=== PATIENT | female | born 1980 | race Caucasian/White ===

== ENCOUNTER 2019-03-27 02:38 | Emergency (ER) | payer BC, OTHER ==
--- NOTE | 2019-03-27 03:22 | RADIOLOGY REPORT (SQ) ---
EXAM DESCRIPTION: XR HAND 3 OR MORE VIEWS COMPLETED DATE/TME: 03/27/2019 02:55 CLINICAL HISTORY: 38 years Female, DOG BITE COMPARISON: None. Findings: Known soft tissue injury; no radioopaque foreign body. Bones, joints, and soft tissues of the LEFT XR HAND 3 OR MORE VIEWS appear otherwise intact. IMPRESSION: Soft tissue injury; else, no acute findings.
--- NOTE | 2019-03-27 07:04 | ER Document Report ---
ED Animal Bite - General Chief Complaint: Dog Bite Stated Complaint: LEFT HAND INJURY/DOG BITE Time Seen by Provider: 03/27/19 06:38 Primary Care Provider: TOMAS WINTER [NO LOCAL MD] - Follow up in 1 week Notes: Patient is a 38-year-old female who presents emergency department with a chief complaint of a dog bite to her left hand. This happened around midnight last night. She states that the dog that bit her was a neighbor dog and the neighbors say they are up-to-date on the rabies immunization, but cannot find the paper, as it was midnight. The patient is up-to-date on her tetanus vaccine. There is a small puncture wound in the webspace between digits 4 and 5 of her right hand. TRAVEL OUTSIDE OF THE [place] IN LAST 30 DAYS: No - Related Data Allergies/Adverse Reactions: ceftriaxone sodium [From Rocephin] Allergy (Severe, Verified 03/27/19 06:27) Penicillins Allergy (Severe, Verified 03/27/19 06:27) erythromycin base [Erythromycin Base] Allergy (Intermediate, Verified 03/27/19 06:27) ibuprofen [Ibuprofen] Allergy (Intermediate, Verified 03/27/19 06:27) Past Medical History - Social History Smoking Status: Unknown if Ever Smoked Family History: Reviewed & Not Pertinent Patient has suicidal ideation: No Patient has homicidal ideation: No Renal/ Medical History: Denies: Hx Peritoneal Dialysis - Immunizations Hx Diphtheria, Pertussis, Tetanus Vaccination: Yes Review of Systems - Review of Systems Notes: REVIEW OF SYSTEMS: CONSTITUTIONAL : Denies recent illness. Denies recent unintentional weight loss. Denies fever, chills, or sweats. EENT: Denies eye, ear, throat, or mouth pain, discharge, or symptoms. Denies nasal or sinus congestion. CARDIOVASCULAR: Denies chest pain. RESPIRATORY: Denies shortness of breath, cough, congestion, difficulty breathing, or wheezing. GASTROINTESTINAL: Denies nausea, vomiting, and diarrhea. Denies abdominal pain. Denies constipation. GENITOURINARY: Denies difficulty urinating, burning, blood in urine, urgency or frequency. MUSCULOSKELETAL: See HPI. SKIN: See HPI. HEMATOLOGIC : Denies easy bruising or bleeding. LYMPHATIC: Denies swollen, painful, enlarged glands. NEUROLOGICAL: Denies no numbness or tingling denies weakness. Denies headache. Denies altered mental status. Denies alteration in speech. PSYCHIATRIC: Denies stress, anxiety, alteration in sleep patterns, or depression. All other systems reviewed and negative. Physical Exam - Vital signs Vitals: Temp Pulse Resp BP Pulse Ox 98.6 F 95 20 143/86 H 100 03/27/19 02:55 03/27/19 02:55 03/27/19 02:55 03/27/19 02:55 03/27/19 02:55 - Notes Notes: PHYSICAL EXAMINATION: GENERAL: Appears well, healthy, well-nourished, no acute distress. HEAD: Normocephalic, atraumatic. EYES: PERRL, conjunctiva normal, all extraocular movements intact, sclera nonicteric ENT: Moist mucous membranes. NECK: Supple, no noticeable swelling, redness, rash. Normal range of motion. LUNGS: Equal breath sounds bilaterally and clear to auscultation. No wheezes rales or rhonchi. CARDIOVASCULAR: S1-S2, regular rate, regular rhythm. Radial pulses 2+, normal. ABDOMEN: Normoactive bowel sounds. Soft, nontender, no guarding, no rebound tenderness, and no masses palpated. EXTREMITIES: Normal strength and range of motion of all digits, but limited range of motion on right fourth and fifth digit due to swelling. No cyanosis. NEUROLOGICAL: Moves all extremities upon command. Strength 5/5 in all extremities. PSYCH: Normal mood, normal affect. Crying appropriately. SKIN: Warm, dry. Puncture wound noted between webspace of fourth and fifth digit of right hand. Normal skin turgor. Course - Re-evaluation Re-evalutation: 03/27/19 Patient's x-ray is negative for any acute fracture. She is able to flex and extend all digits with ease, but has limited range of motion on the right fifth digit, due to swelling and pain. She is able to extend extend the right fifth digit, therefore I do not suspect a tendon injury. There is localized swelling. She will be started on doxycycline, as she is allergic to penicillins. PCT had irrigated the wound. The puncture wound does not repairable and I would like to keep it open to allow drainage. She will follow-up with her primary care provider in regards to this visit. Follow-up precautions were given. Verbal discharge instructions were given to the patient. They verbalized understanding. They are stable for discharge. - Vital Signs Vital signs: Temp Pulse Resp BP Pulse Ox 97.8 F 76 18 117/71 99 03/27/19 08:07 03/27/19 08:07 03/27/19 08:07 03/27/19 08:07 03/27/19 08:07 Discharge - Discharge Clinical Impression: Dog bite Qualifiers: Encounter type: initial encounter Qualified Code(s): W54.0XXA - Bitten by dog, initial encounter Condition: Stable Disposition: HOME, SELF-CARE Additional Instructions: Please monitor very closely for any signs of infection from your dog bite including spreading redness from the area, pus from the wound, or worsening pain. Clean the area twice daily with soap and water and then apply topical antibiotic ointment. Likely, doxycycline will cover any dog bite infection. Please continue take your doxycycline as prescribed. Follow-up with your primary care physician as needed. You are being sent home with [place], medication to help with the pain. You can take 1 tablet as needed for extreme pain. Please take Tylenol 1000 mg every 6 hours and try to take the [place] only if you absolutely need it. Do not exceed 4000 mg of Tylenol. There is 325 mg of Tylenol in [place]. Prescriptions: Doxycycline Hyclate 100 mg PO BID #14 capsule Forms: Return to Work Referrals: MAGGY,NO [NO LOCAL MD] - Follow up in 1 week
[2019-03-27] MEDS ORDERED: HYDROCODONE/ACETAMINOPHEN 5-325 MG TABLET PO ONE (07:05)
[2019-03-27] MEDS ORDERED: HYDROCODONE/ACETAMINOPHEN 5-325 MG (6 TAB/ER DISP) PO PRN (07:05)
[2019-03-27 08:11] VITALS: BP 117/71
== END 2019-03-27 08:07 | disposition home or self-care (01) ==
LOC: ER 02:38
DX: S61.452A Open bite of left hand, initial encounter (principal); W54.0XXA Bitten by dog, initial encounter; Z88.0 Allergy status to penicillin; Z88.3 Allergy status to other anti-infective agents; Z88.6 Allergy status to analgesic agent
CPT/HCPCS: 99283